=== PATIENT | male | born 1985 | race Caucasian/White ===

== ENCOUNTER 2017-05-07 10:08 | Emergency (ER) | payer OTHER ==
[~2017-05-07] VITALS: Ht 180.3 cm; Wt 117.9 kg
--- NOTE | 2017-05-07 10:14 | Emergency Room Report ---
History of Present Illness Time Seen by [id number] Presenting Problem in Triage Pt arrived:Walked Presenting Problem:CHEST DISCOMFORT Onset of symptoms date/time:/ or onset unknown for:MEDICAL HX UNKNOWN Treatment Prior to Arrival: [employer] Provided by: Sepsis Risk Assessment: Temp: 97.8 B/P: 146/88 MAP: 107 Pulse: 60 Resp: 18 Recent fever? N Clinical Suspician of Infection? N Mental Status: 1 - Regular (Normal Baseline) Sepsis Risk:Low Sepsis Risk Have you (or family members/close friends) recently traveled outside the [place]? N If Yes, where/when: Have you had exposure to infectious disease within the past month? TB? Other? Specify: Comment The patient complains of chest pain onset at 11 PM last night. He locates it in the area of his xiphoid and it radiates around his RIGHT side almost to his spine. States it feels like a pulled muscle. It increases with movement and deep breath. It also increased when he drank soda last night and whenever he tries to eat. He has nausea but no vomiting. No chronic medical problems except for "pre-hypertension". No prescription medications. No trauma. ALLERGIES Coded Allergies: kiwi (Mild, 05/07/17) pseudoephedrine (From SUDAFED) (Mild, 05/07/17) History Medical History General More? 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 Age > 49? No 2. Pulse greater than 99/min? No 3. Room air pulse ox <95%? No 4. Hemoptysis? No 5. On estrogen? No 6. Prior diagnosis of DVT or PE? No 7. Surgery or trauma requiring endotracheal intubation or hospitalization in past 4 wks? No 8. Unilateral leg swelling? No The patient is low risk and the PERC score is 0, indicating no further workup for pulmonary embolism is necessary. Review of Systems All Other Systems Reviewed and Negative Constitutional denies fever Cardiovascular chest pain Gastrointestinal denies abdominal pain, nausea, denies vomiting Physical Exam Vital Signs Vital Signs Date Time Temp Pulse Resp B/P Pulse O2 O2 Flow FiO2 Ox Delivery Rate 05/07 1337 97.8 62 18 150/84 95 05/07 1318 62 18 150/81 95 05/07 1227 97.8 57 18 147/73 98 05/07 1121 59 18 153/89 96 05/07 1108 18 05/07 1010 97.8 60 18 146/88 98 General Appearance no apparent distress Eye Exam - bilateral eye normal exam, bilateral eye PERRL, bilateral eye EOMI Ear, Nose, Throat hearing grossly normal, normal ENT inspection Neck normal inspection, non-tender, supple, full range of motion Respiratory Status Yes: trachea midline, chest symmetrical, non tender chest. No: respiratory distress. Lung Sounds bilateral: normal breath sounds, lungs clear. Cardiovascular normal exam, regular rate/rhythm, no peripheral edema, no gallop, no JVD, no murmur, no rub, normal peripheral pulses Peripheral Pulses Pulses normal Yes Gastrointestinal normal bowel sounds, soft, no organomegaly, tenderness, midline and RIGHT paramedian subxiphoid tenderness Extremities non-tender, normal range of motion, normal inspection Neurologic alert, normal exam, oriented x 3 Mental status normal mood/affect Skin intact, normal color, warm/dry Medical Decision Making LABS/Meds/Orders Pt receiving controlled substance in ED? No Results/Orders Laboratory Tests 05/07/17 1115: Hepatitis A IgM Ab Pending, Hep Bs Antigen Pending, Hep B Core IgM Ab Pending, Hepatitis C Antibody Pending 05/07/17 1057: Hepatitis A Ab Total Cancelled, Hep Bs Antigen Cancelled, Hep Bs Antibody Cancelled, Hep B Core Total Ab Cancelled, Hepatitis C Antibody Cancelled 05/07/17 1015: Amylase 36, Lipase 205 05/07/17 1015: Sodium 140, Potassium 4.3, Chloride 102, Carbon Dioxide 31, BUN 13, Creatinine 0.9, Estimated Creat Clear 198, Estimated GFR (MDRD) 98, Glucose 145 H, Calcium 9.7, Total Bilirubin 0.5, AST 28, ALT 88 H, Alkaline Phosphatase 72, Creatine Kinase 224, CK-MB (CK-2) Rel Index 1.4, CK and CKMB Interp 3.1, Troponin I < 0.02, Total Protein 8.7 H, Albumin 4.9, Globulin 3.8 H, Albumin/Globulin Ratio 1.3, WBC 16.7 H, RBC 5.40, Hgb 17.0, Hct 48.1, MCV 89.2, RDW 12.1, Plt Count 269, MPV 7.3 L, Gran % 77.7, Gran # 13.0 H, Total Counted 100, Lymphocytes % 16.2, Monocytes % 5.2, Eosinophils % 0.4, Basophils % 0.4, Neutrophils 77 H, Lymphocytes (Manual) 10, Lymphocytes # 2.7, Monocytes (Manual) 3, Monocytes # 0.9, Eosinophils # 0.1, Basophils # 0.1, Atypical Lymphocytes 10 H, Platelet Estimate NORMAL, PUBS MCHC 35.4, MCH 31.6 H, Monoscreen NEGATIVE Current Medication Orders Sig/Caleb Start time Last Medication Dose Route Stop Time Status Admin Iopamidol 75 ML ONCE ONE 05/07 1500 UNV 05/07 IV 05/07 1501 1130 Sodium Chloride 10 ML ONCE ONE 05/07 1500 UNV 05/07 IV 05/07 1501 1130 Ondansetron HCl 0 .STK-MED ONE 05/07 1106 DC .ROUTE Ketorolac 0 .STK-MED ONE 05/07 1105 DC Tromethamine .ROUTE Ketorolac 30 MG ONCE ONE 05/07 1030 DC 05/07 Tromethamine IV 05/07 1031 1108 Ondansetron HCl 4 MG ONCE ONE 05/07 1030 DC 05/07 IV 05/07 1031 1109 Sodium Chloride 10 ML PRN PRN 05/07 1015 DCD IV 05/08 1014 Orders Procedure Date/time Status DIET-NOTHING BY MOUTH 05/07 L Active MONO SCREEN 05/07 1057 Complete HEPATITIS B PROFILE 05/[address] ABD/PELVIS REQ 05/07 1051 Complete LIPASE 05/07 1020 Complete AMYLASE 05/07 1020 Complete ELECTROCARDIOGRAM REQUEST 05/07 1016 Active IV SALINE LOCK 05/07 1016 Active SOURCING INTERN 05/07 1016 Active CBC WITH AUTO DIFF 05/07 1016 Complete CARDIAC ENZYMES 05/07 1016 Complete CHEM 12 PROFILE 05/07 1016 Complete DIFFERENTIAL-WBC 05/07 1015 Complete 12 LEAD EKG-KAY (INITIAL) 05/07 UNK Active CM/EKG CM/EKG Comments EKG interpreted by Johnny Black MD: Rhythm: sinus Rate: 69 [place]: normal Ectopy: none Conduction: normal ST Segment Changes: none T Wave Changes: none Q Waves: none No evidence of acute ischemia or injury XRAY/CT/US XRAY/CT/US XRAY chest Comment X-ray interpreted by Johnny Black M.D.: Atelectasis RIGHT base CT abdomen, pelvis Comment CT scan interpreted by radiologist: Distended gallbladder. No stones. No inflammation. Questionable diverticulitis sigmoid. Clinically, the patient does not have diverticulitis. Progress - 1:25 PM: Recheck patient. He has no tenderness in the LEFT lower quadrant. All of his symptoms have resolved. I will put him on antibiotics for the possibility of cholecystitis, and have advised him to follow-up to get an outpatient gallbladder ultrasound. Departure Departure Disposition DC Home or Self Care(routine) Clinical Impression Primary Impression: Chest pain, atypical Secondary Impressions: Epigastric pain Leukocytosis Qualifiers: Leukocytosis type: unspecified Qualified Code: D72.829 - Elevated white blood cell count, unspecified Right upper quadrant pain Condition STABLE Referrals NO REFERRAL (PCP) Patient Instructions DI for Abdominal Pain-Adult, DI for Atypical Chest Pain Additional Instructions You are being provided with a list of physicians available for follow-up of your condition. Please call a physician on this list to arrange a follow-up appointment as soon as possible. Avoid fatty foods. Follow up with a primary care physician, earliest available appointment. I recommend an outpatient gallbladder ultrasound. Additional instructions for ABDOMINAL PAIN: Return immediately if worsening abdominal pain, vomiting, shortness of breath, fever, vomiting of blood or abdominal distention. Additional instructions for CHEST PAIN: See a primary care physician as soon as possible for further evaluation. Return immediately if worsening chest pain, vomiting, shortness of breath, fever, coughing of blood. Prescriptions Current Visit Scripts Amoxicillin/Potassium Clav (Augmentin 875-125 Tablet) 1 EACH PO BID #20 TAB take as prescribed Ibuprofen (Ibuprofen 800MG) 800 MG PO Q8HP PRN pain #15 TAB ED Critical Care Critical Care No at 1916
[2017-05-07 10:33] LABS: LYMPH # 2.7 K/mm3 (0.7-4.5); LYMPH % 16.2 % (10-50)
[2017-05-07 10:53] LABS: NEUTROPHILS 77 % (42-76)
[2017-05-07 10:55] LABS: BUN 13 mg/dL (7-18); GFR (ESTIMATED) 98 ML/MIN (>60)
--- NOTE | 2017-05-07 12:54 | RADIOLOGY REPORT PS360 ---
CT ABD PELVIS W/ CONTRAST CLINICAL INDICATION: RUQ EPIGASTRIC PAIN, ELEVATED WBC ORDERING PHYSICIAN: Johnny Black MD PATIENT AGE: 31 years COMPARISON: None TECHNIQUE: Axial images obtained with sagittal and coronal reformats. PROCEDURE: Oral Contrast: None IV Contrast: 75 mL of Isovue-370. FINDINGS: Lower thorax: No acute finding ABDOMEN: Liver: No masses or biliary dilatation. Gallbladder: Slightly distended at 10 x 4 cm. No radio opaque stones identified. Pancreas: No masses or peripancreatic fluid collections. Spleen: Unremarkable. Adrenals: Unremarkable Kidneys/ureters: No masses. No renal calculi. No hydronephrosis. No perinephric fluid collections. No ureteral dilatation or obvious ureteral calculi. Stomach bowel: No intestinal obstruction or free air is evident. There is a small hyperdense diverticulum at the rectosigmoid junction seen on image #112 with some minimal stranding of the fat at this region and a small amount of fluid anterior to this area. Mild diverticulitis is considered. No abscess or perforation evident. The hyperdensity could be related to retained contrast from another study or other ingested material. There is tiny umbilical hernia containing fat. Appendix: No evidence of appendicitis. PELVIS: Reproductive: Unremarkable Bladder: Nondistended. No obvious stones or masses. ABDOMEN & PELVIS: Peritoneum: See above Lymph nodes: No enlarged lymph nodes apparent. Vasculature: No evidence of abdominal aortic aneurysm. No retroperitoneal hemorrhage evident. Bones: No acute fracture IMPRESSION: Suspect mild diverticulitis at the rectosigmoid junction. No evidence of abscess or perforation No evidence of appendicitis
--- NOTE | 2017-05-07 12:54 | RADIOLOGY REPORT PS360 ---
CHEST(2 VIEWS-NOT PORTABLE) HISTORY: CHEST PAIN ORDERING PHYSICIAN: Johnny Black MD PATIENT AGE: 31 years COMPARISON: None available FINDINGS: The cardiomediastinal silhouette and pulmonary vascularity are within normal limits. The lungs are clear without infiltrates, suspicious nodules, or pleural effusions. No acute bony abnormalities. IMPRESSION: Negative chest, no acute finding
[2017-05-07] MEDS ORDERED: AUGMENTIN 875-1 EACH PO (13:29)
[2017-05-07] MEDS ORDERED: IBUPROFEN800 MG PO (13:29)
[2017-05-07 13:37] VITALS: BP 150/84
[2017-05-09 07:38] LABS: HBsAg Screen Negative (Negative); Hep A Ab, IgM Negative (Negative); Hep B Core Ab, IgM Negative (Negative); Hep C Virus Ab <0.1 (0.0-0.9)
== END 2017-05-07 13:38 | disposition home or self-care (01) ==
LOC: ER 10:08
PROVIDERS: Emergency Medicine
DX: R07.89 Other chest pain (principal); R10.13 Epigastric pain; D72.829 Elevated white blood cell count, unspecified; R10.11 Right upper quadrant pain
CPT/HCPCS: J2405; Q9967